=== PATIENT | male | born 1945 | race Caucasian/White ===

== ENCOUNTER 2017-09-25 07:49 | Observation (INO) | payer MEDICARE, OTHER, SELFPAY ==
--- NOTE | 2017-09-25 07:49 | DT_ITS ---
This patient was seen during an EMR downtime September 22, 2017 - September 29, 2017. This patient may have a combination of paper and electronic documentation or all paper documentation. All documentation is viewable within the e-chart portion of [facility] for each patient visit.
--- NOTE | 2017-09-25 09:40 | RAD_ITS ---
STUDY: X-RAY CHEST REASON FOR EXAM: Male, 72 years old. NG tube placement verification. TECHNIQUE: Single frontal view of the chest. COMPARISON: None. FINDINGS: An NG tube is present and coiled in the left upper quadrant of the abdomen. There is low volume inspiration. There is no demonstrated pleural abnormality. There is cardiomegaly. Normal mediastinum and elma. Normal visualized pulmonary arteries. Normal visualized aortic arch and descending thoracic aorta. Normal visualized thoracic spine. Normal visualized ribs, clavicles, and shoulders. There is no demonstrated abnormality of the visualized soft tissue structures of the upper abdomen. RAD/Abdomen Single View (Portable) IMPRESSION: NG tube coiled in the left upper quadrant of the abdomen. Cardiomegaly with low volume inspiration. No acute pathology. Electronically Signed: Matthew Hanley MD at 11:19 EDT , Service support ,
--- NOTE | 2017-09-26 10:25 | COLBX_PTH ---
PATIENT: DEONTE ORTEGA LOC: [facility]3 U#:[id number] AGE/SX: 72/M ROOM: MI311 RE09/25/[address]: Dr. Moses Baird MD : 1945 BED: 1 DIS: 09/26/2017 SPEC #: [id number] RECD: 09/26/17 11:52 STATUS: DAVID REQ #: [id number] FREDI: 09/26/17 10:[address]: Moses Baird DEPT: SURGICAL PATHOLOGY RECD BY: Daniel Drew ENTERED: 09/26/17 12:21 SP TYPE: COLON BX OTHR DR: Dr. Bernice Moy MD Tissues: A - Ascending colon B - Transverse colon C - Transverse colon Procedures: Surgery Specimen Level IV HEADER OPERATION: Colonoscopy PRE-OP DIAGNOSIS: Screen TISSUE SUBMITTED: A ? Ascending colon polyp, B ? Proximal transverse polyp, C ? Mid transverse polyp MICROSCOPIC DIAGNOSIS A. Ascending colon polyp, biopsy: Fragments of tubular adenoma. B. Proximal transverse colon polyp, biopsy: Tubular adenoma. C. Mid transverse colon polyp, biopsy: Tubular adenoma. Fragments of fecal material. MATIAS:magnus 09/29/17 MICROSCOPIC DESCRIPTION Slides are reviewed. GROSS DESCRIPTION A - Received in fixative is one container labeled with the patient's name and designated ascending colon polyp. The specimen consists of multiple irregular fragments of light romero soft tissue that in aggregate measure 0.6 x 0.5 x 0.1 cm. The specimen is totally submitted in one cassette. B - Received in fixative is one container labeled with the patient's name and designated proximal transverse polyp. The specimen consists of a piece of romero-pink polyp measuring 0.5 x 0.5 x 0.2 cm. The specimen is totally submitted in one cassette. C - Received in fixative is one container labeled with the patient's name and designated mid transverse polyp. The specimen consists of multiple irregular fragments of light romero soft tissue mixed with fecal material that in aggregate measure 0.7 x 0.5 x 0.1 cm. The specimen is totally submitted in one cassette. / MATIAS:magnus 09/26/17 TC:1 CPT: 34319 x3
[2017-09-27 14:12] LABS: BUN 15 mg/dL (7-18); EST Glomerular Filtration Rate 79 mL/min (>60); Est Glom Filt Rate - Afr Amer 96 mL/min (>60); Glucose 166 mg/dL (74-106)
[2017-09-27 14:13] LABS: Anion Gap 9 (5-15); Chloride 105 mmol/L (98-107); Potassium 3.7 mmol/L (3.5-5.1); Sodium Level 143 mmol/L (136-145)
[2017-09-27 14:16] LABS: Magnesium 1.4 mg/dL (1.6-2.6)
[2017-09-27 14:21] LABS: Hemoglobin A1c 6.9 % (4.2-6.3)
[2017-09-28 11:22] LABS: Hematocrit 41.5 % (40-54); Hemoglobin 14.4 g/dl (13.0-16.5); Mean Corp Hgb Conc 34.7 g/gl (32-36); Mean Corpuscular Hgb 31.9 pg (27.0-32.0); Mean Platelet Vol. 11.6 fl (6.2-12.0); Platelet Count 211 K/mm3 (150-450); RBC Distribution Width SD 43.5 fl (35.1-43.9); Red Blood Count 4.51 M/mm3 (4.6-6.2); Scan Indicated on CBC? Y/N NO
[2017-09-29 22:15] LABS: Anion Gap 7 (5-15); BUN 8 mg/dL (7-18); BUN/Creat Ratio 9.3 RATIO (10-20); Calcium,Total 8.6 mg/dL (8.5-10.1); Chloride 112 mmol/L (98-107); Creatinine, Serum 0.86 mg/dL (0.70-1.30); EST Glomerular Filtration Rate 93 mL/min (>60); Est Glom Filt Rate - Afr Amer 113 mL/min (>60); Glucose 146 mg/dL (74-106); Potassium 3.7 mmol/L (3.5-5.1); Sodium Level 146 mmol/L (136-145)
[2017-09-30 08:50] LABS: Bedside Glucose 140 mg/dL (70-110)
[2017-09-30 08:53] LABS: Bedside Glucose 155 mg/dL (70-110)
--- NOTE | 2017-10-13 18:03 | OP.PCM_ITS ---
Problem List (1) Personal history of colonic polyps Status: Acute Report of Operation Date of Procedure: 09/26/17 Pre-Operative Diagnosis: Personal history of colon polyps Post-Operative Diagnosis: Sessile polyps of the ascending colon and proximal transverse colon and mid transverse colon Surgery/Procedure Performed:: Colonoscopy with polypectomies ?3 Description of Surgical Findings:: This colonoscopy was performed during the [facility] downtime. The postoperative note was immediately dictated into the [employer] system. Today October 13, 2017 I am alerted that that dictation has also been misplaced. This procedure is being performed because of a history of abdominal pain and constipation and a personal history of colon polyps. This is a delayed dictation Timeout and informed consent was obtained. 72-year-old gentleman was taken to the endoscopy suite. Because of increased medical risk he underwent monitored anesthesia care. Digital rectal exam performed. Hemorrhoidal changes 2+ smooth prostate. With difficulty the colonoscope was advanced through the colon. The patient is obese. Transabdominal pressure was required. The cecum ileocecal valve however was achieved. Previously the patient had a colonoscopy that was inadequate due to poor bowel prep. That was not the case today. Bowel prep was adequate. It is of note that the patient had an ascending colon polyp and a proximal transverse colon polyp and a mid transverse colon polyp. A combination of cold forcep biopsy and hot snare polypectomy was utilized to remove these 3 polyps. Diverticular disease was noted in the descending sigmoid colon. The patient tolerated procedure well. He was taken to the recovery area and then back upstairs as he had been admitted 1 day preoperatively to allow for NG tube placement to allow for electrolyte solution be given via NG tube to facilitate his bowel prep. Next colonoscopy recommended in 3 years pending pathology results. Previous colonoscopy was 1 year prior. Scope insertion time was 1022. The cecum was reached at 1027. The procedure was completed at 1045. Patient would likely require aggressive bowel prep and again in the future and monitored anesthesia care facilitated his procedure. Moses Baird M.D., F.A.C.S. Type of Anesthesia:: MAC
== END 2017-09-26 12:46 | disposition home or self-care (01) ==
LOC: MS3 12:57
PROVIDERS: Internal Medicine; Admitting Provider Surgery; Family Provider Internal Medicine; PCP Internal Medicine; Visit Provider Surgery
PROC: 0DJD8ZZ Inspection of Lower Intestinal Tract, Via Natural or Artificial Opening Endoscopic (ICD-10-PCS; CPT 45378; principal; 2017-09-26 09:30)
DX: D12.2 Benign neoplasm of ascending colon (principal); D12.3 Benign neoplasm of transverse colon; K57.30 Diverticulosis of large intestine without perforation or abscess without bleeding; E11.9 Type 2 diabetes mellitus without complications; I65.29 Occlusion and stenosis of unspecified carotid artery; K59.01 Slow transit constipation; Z87.891 Personal history of nicotine dependence; Z86.010 Personal history of colon polyps; E78.00 Pure hypercholesterolemia, unspecified; A80.9 Acute poliomyelitis, unspecified
CPT/HCPCS: 45380; 45385; 36415; 74018; 80048; 82962; 83036; 83735; 85027; 88305; 96361; 96374; 99218; J7120; C1887; G0378; G0379; J1610